=== PATIENT | female | born 1935 | race American Indian/Alaskan Native ===

== ENCOUNTER 2021-11-02 16:13 | Inpatient (IN) | payer MEDICARE ==
[~2021-11-02] VITALS: Ht 165.1 cm; Wt 76.1 kg
[~2021-11-02 16:13] MED LIST: ACET325 PO; CALCAVITD PO; CARV6.25 PO; Coumadin3 MG PO; DIPH50 PO; Diltiazem ER120 M1 PO; ERYT.5TO OU; FERR325 PO; FISH OIL 1,2001 EAC2 PO; GABA300 PO; Glipizide ER5 MG PO; HYDACE5 PO; HYDR1TAB94 PO; LEVSOD150 PO; LEVSOD50 PO; LOSARTAN-HCTZ1 EAC5 PO; LOSHYD100; LOSHYD100 PO; METF500C PO; Multiple Vitam1 EAC1 PO; OMEG1CAP30; OMEP20ER PO; OSEL75CA PO; PRAV20 PO; SERT50 PO; TOCO400; VITAMIN D31000 UNI1 PO; WARF3; WARF3 PO; WARF4
[2021-11-02 16:53] LABS: BASOPHILS ABSOLUTE AUTO 0.03 K/mm3 (0.00-0.23); BASOPHILS PERCENT AUTO 0 % (0-2); EOSINOPHILS ABSOLUTE AUTO 0.06 K/mm3 (0.00-0.68); EOSINOPHILS PERCENT AUTO 1 % (0-6); Hematocrit 44.4 % (33.0-51.0); Hemoglobin 14.5 g/dL (11.5-16.0); IMMATURE GRAN ABSOLUTE AUTO 0.01 K/mm3 (0.00-0.10); IMMATURE GRAN PERCENT AUTO 0 % (0-1); LYMPHOCYTES PERCENT AUTO 30 % (21-46); MONOCYTES ABSOLUTE AUTO 0.72 K/mm3 (0.16-1.47); MONOCYTES PERCENT AUTO 10 % (4-13); Mean Corpuscular HGB 31.4 pg (26.0-34.0); Mean Corpuscular HGB Conc 32.7 g/dL (31.5-36.5); Mean Corpuscular Volume 96 fL (80-100); NEUTROPHILS ABSOLUTE AUTO 4.31 K/mm3 (1.96-9.15); NEUTROPHILS PERCENT AUTO 59 % (41-73); RDW Coefficient Variation 14.8 % (11.7-14.2); RDW Standard Deviation 52.7 fL (35.1-46.3); Red Blood Cell Count 4.62 M/mm3 (3.80-5.20); White Blood Cell Count 7.33 K/mm3 (4.00-11.30)
[2021-11-02 16:59] LABS: Alanine Aminotransfer (ALT/SGP 23 U/L (12-78); Albumin, Blood 3.1 g/dL (3.4-5.0); Albumin/Globulin Ratio 0.8 (0.8-1.8); Alk Phos 78 U/L (50-136); Anion Gap 4 mmol/L (6-16); Aspartate Aminotrans (AST/SGOT 25 U/L (12-37); Bilirubin, Total 0.4 mg/dL (0.1-1.0); Blood Urea Nitrogen 17 mg/dL (8-24); Bun/Creatinine Ratio 20.9 (12.0-20.0); CO2, Blood 30 mmol/L (21-32); Calcium, Blood 9.2 mg/dL (8.5-10.1); Chloride, Blood 108 mmol/L (98-108); Creatinine, Blood 0.81 mg/dL (0.40-1.00); Ethanol (Alcohol), Blood, Med <3 mg/dL; Globulin, Blood 3.9 g/dL (2.2-4.0); Glomerular Filtration Rate >60 (60-); Glucose, Blood 107 mg/dL (70-99); Potassium, Blood 4.2 mmol/L (3.5-5.5); Sodium, Blood 142 mmol/L (136-145)
[2021-11-02 20:09] LABS: International Normalized Ratio 1.21; Prothrombin Time Results 12.5 Sec (9.7-11.5)
[2021-11-02] MEDS ORDERED: CARVEDILOL12.5 MG PO (22:49)
[2021-11-02] MEDS ORDERED: JANTOVEN3 M2 PO (22:49)
[2021-11-02] MEDS ORDERED: FOSAMAX70 MG PO (22:49)
[2021-11-02] MEDS ORDERED: JANTOVEN4 M2 PO (22:54)
--- NOTE | 2021-11-03 05:07 | NUR ---
HALIE WAS ADMITTED FOR CVA. CAROTID DUPLEX AND CT SCAN SHOWED INFARCTS. SHE WAS CONFUSED, HAD A SLURRED SPEECH IN THE ER ACCORDING TO REPORT. WHEN SHE ARRIVED TO THE MED SURG FLOOR SHE WAS ALERT AND ORIENTED, ASKED TO USE THE BATHROOM, USED THE WALKER TO AMBULATE WITH NORMAL GAIT (DOES NOT USE WALKER AT HOME). SHE WAS PLACED ON HEPARIN DRIP. VITALS ARE STABLE. LAB ORDERED THIS MORNING. WILL CONTINUE TO MONITOR
[2021-11-03 08:08] LABS: International Normalized Ratio 1.21; Prothrombin Time Results 12.5 Sec (9.7-11.5)
[2021-11-03 08:43] LABS: CHOL/HDL RATIO 3.5; Cholesterol 158 mg/dL (50-200); HDL Cholesterol 45 mg/dL (>39); LDL/HDL RATIO 2.1; Low Density Lipoprotein Chol 95 mg/dL (0-110); Triglycerides 90 mg/dL (30-160); Very Low Density Lipoprot Chol 18 mg/dL (6-32)
--- NOTE | 2021-11-03 18:36 | NUR ---
SHIFT SUMMARY PATIENT AAOX4. CAME IN WITH RIGHT SIDEED WEAKNESS BUT EQUAL OF NOW. SOME SLURRED SPEECH STILL NOTED AND A SLIGHT RIGHT FACIAL DROOP. WAS DROOLING A SMALL AMOUNT IN AM BUT NO LONGER. ABLE TO AMBULATE BACK AND FOURTH TO BATHROOM WITH A WALKER AT BEDSIDE. EATING MEALS WITH NO SWALLOWING PROBLEMS NOTED AND TOOK PILLS AND NO CHOKING SEEN OR HEARD. IV HEPARIN DRIP WAS DISCONTINUED TODAY AT 5PM AND COUMADIN WELL AND NEW ORDERS FOR ELIQUIS NOW. NO C/O PAIN, SOB, N/V, OR DISCOMFORT VOICED. VSS. NAD NOTED. WILL CONTINUE TO MONITOR IN CARE.
--- NOTE | 2021-11-04 04:07 | NUR ---
SHIFT SUMMARY: HALIE REMAINED STABLE ALL NIGHT. SHE WAS ALERT AND ORIENTED. GOT UP TO THE BATHROOM WUSING THE WALKER A COUPLE OF TIMES, WAS IN HUMOROUS MOOD WHEN AWAKE. SHE SLEPT MOST OF THE NIGHT
--- NOTE | 2021-11-04 09:24 | NUR ---
Received referral from [facility] [employer] Machinist (Dasia Calles) on 11/04/2021. Patient is to discharge with orders for hospice and family elected [facility]. Gathered supporting documentation for referral (face sheet, labs, imaging, progress notes, and H&P) and sent to [facility] Clinical Coordinator/heel sander rubber (Sarah Nelson) for review of hospice appropriateness and ability to accept patient onto service post discharge. Will await further information from hospice heel sander rubber regarding the above. Kami Neville Referral Liaison
[2021-11-04] MEDS ORDERED: ATOR80 PO (11:43)
[2021-11-04] MEDS ORDERED: ELIQUIS5 M2 PO (11:44)
--- NOTE | 2021-11-04 11:53 | NUR ---
Per Dr. Lua, patient is appropriate for discharge. Patient denied barriers to discharge and felt safe to return home. I called and left a voicemail for the patient's daughter (Barbara) who will be helping the patient with transportation home. I also scheduled a hospital follow up with Dex Shaver for next week on Tuesday, November 11, 2021 at 10:[address] Dr. Lua also wanted the patient to have two weeks worth of Eliguis (#56). Patient is to take two 2.5mg tablets BID until the patient follows up with her PCP. The nurse is aware and will instruct the patient.
--- NOTE | 2021-11-04 15:17 | NUR ---
DISCHARGE NOTE PATIENT IS AAOX4. UNDERSTANDS AND FOLLOWS COMMANDS AND ANSWERS QUESTIONS APPROPRIOETLY. WENT OVER DISCHARGE PAPERWORK WITH PATIENT AND HER DAUGHTER. EXPLAINED NEW MEDS, NEW PUREE DIET AND RISK AND PRECAUTIONS TO TAKE FOR ASPIRATION. GAVE SAMPLES OF ELIQUIS FROM MD OFFICE. REMOVED IV 20 GAUGE FROM RIGHT FOREARM AND APPLIED PRESSURE FOR 2 MINUTES D/T BEING ON COUMADIN AND HEPARIN DRIP PREVIOUSLY. ASSISTED WITH CLOTHES AND EXPLAINED HELP FOR HOME AND GAVE INFORMATION ON HOME HEALTH WITH PT/ST AND FOLLOW UP APPOINMENTS. QUESTIONS FROM DAUGHTER ANSWERED. VSS. NAD NOTED. NO C/O PAIN, SOB, N/V OR DISCOMFORT VOICED AT THIS TIME. PATIENT ESCORTED OFF FLOOR PER SERG JACQUES VIA WHEELCHAIR TO [employer] PERSONAL VEHICLE WITH PACKET IN HAND
--- NOTE | 2021-11-06 16:22 | NUR ---
Received referral from [facility] Surveillance Operator (Dasia Calles) on 11/04/2021. Patient discharged on 11/04/2021 with orders for home health and elected [facility]. Attempted to reach patient's daughter (Barbara Palencia) on at 1650. Unfortunately patient's daughter did not answer. Left voicemail asking patient's daughter to return this senior mortgage underwriter's call. Second attempted to reach patient's daughter on 11/06/2021 at 1031. Unfortunately patient's daughter did not answer. Left voicemail asking patient's daughter to return this senior mortgage underwriter's call. Third and final attempted to reach patient's daughter on 11/06/2021 at 1610. Spoke with patient's daughter at this time regarding the above. Patient's daughter is agreeable to the above. Discussed homebound status definition with patient's daughter. Patient's daughter verbalized understanding. Discussed what home health is vs what it is not (in home caregivers/housekeeping). Patient's daughter verbalized understanding. Discussed the next steps in the process of an initial assessment to determine frequency of visits. Again patient's daughter verbalized understanding. Offered a chance for patient's daughter to ask questions regarding the above of which there were none. Gathered all supporting documentation for referral (face sheet, face to face, med list, H&P, and most recent PT assessment) and sent to [facility] for review. No further interventions required. Kami Neville Referral Liaison
== END 2021-11-04 15:30 | disposition home health service (06) | DRG 65 ==
LOC: ER 16:13 → ERHOLD 18:42 → MEDS 22:53
PROVIDERS: Emergency Medicine; ADMIT Hospitalist
DX: I63.9 Cerebral infarction, unspecified (principal); I48.20 Chronic atrial fibrillation, unspecified; I42.9 Cardiomyopathy, unspecified; I69.354 Hemiplegia and hemiparesis following cerebral infarction affecting left non-dominant side; I10 Essential (primary) hypertension; E03.9 Hypothyroidism, unspecified; Z66 Do not resuscitate; E11.40 Type 2 diabetes mellitus with diabetic neuropathy, unspecified; F32.A Depression, unspecified; R47.1 Dysarthria and anarthria; Z79.01 Long term (current) use of anticoagulants; Z85.850 Personal history of malignant neoplasm of thyroid; E03.8 Other specified hypothyroidism; E78.5 Hyperlipidemia, unspecified; E66.9 Obesity, unspecified; G47.00 Insomnia, unspecified; G47.33 Obstructive sleep apnea (adult) (pediatric); Z95.0 Presence of cardiac pacemaker; Z87.891 Personal history of nicotine dependence; Z88.8 Allergy status to other drugs, medicaments and biological substances; Z79.899 Other long term (current) drug therapy; Z79.84 Long term (current) use of oral hypoglycemic drugs; Z88.1 Allergy status to other antibiotic agents; R47.81 Slurred speech
CPT/HCPCS: 36415; 70450; 71045; 80053; 80061; 84443; 85025; 85610; 85730; 92610; 93005; 93010; 93306; 93880; 97161; 97166; 97535; 99285-25; A9270; G0480; J1644

== ENCOUNTER 2025-01-26 11:47 | Observation (INO) | payer MEDICARE ==
[~2025-01-26] VITALS: Ht 157.5 cm; Wt 75.0 kg
[2025-01-26] VITALS (7 sets, daily range): BP systolic 111–156; BP diastolic 81–109
[~2025-01-26 11:47] MED LIST changes: +ATOR80 PO; +CARVEDILOL12.5 MG PO; +ELIQUIS5 M2 PO; +FOSAMAX70 MG PO; +JANTOVEN3 M2 PO; +JANTOVEN4 M2 PO
[2025-01-26 12:26] LABS: BASOPHILS ABSOLUTE AUTO 0.04 K/mm3 (0.00-0.23); BASOPHILS PERCENT AUTO 1 % (0-2); EOSINOPHILS ABSOLUTE AUTO 0.07 K/mm3 (0.00-0.68); EOSINOPHILS PERCENT AUTO 1 % (0-6); Hematocrit 33.3 % (33.0-51.0); IMMATURE GRAN ABSOLUTE AUTO 0.03 K/mm3 (0.00-0.10); IMMATURE GRAN PERCENT AUTO 0 % (0-1); LYMPHOCYTES ABSOLUTE AUTO 1.44 K/mm3 (0.84-5.20); LYMPHOCYTES PERCENT AUTO 16 % (21-46); MONOCYTES ABSOLUTE AUTO 1.01 K/mm3 (0.16-1.47); MONOCYTES PERCENT AUTO 11 % (4-13); Mean Corpuscular HGB 23.5 pg (26.0-34.0); Mean Corpuscular Volume 78 fL (80-100); Mean Platelet Volume 8.9 fL (9.1-12.4); NEUTROPHILS ABSOLUTE AUTO 6.25 K/mm3 (1.96-9.15); NEUTROPHILS PERCENT AUTO 71 % (41-73); Platelet Count 326 K/mm3 (150-400); RDW Coefficient Variation 20.6 % (11.7-14.2); Red Blood Cell Count 4.26 M/mm3 (3.80-5.20); White Blood Cell Count 8.84 K/mm3 (4.00-11.30)
[2025-01-26 12:58] LABS: Albumin, Blood 2.7 g/dL (3.4-5.0); Albumin/Globulin Ratio 0.6 (0.8-1.8); Bilirubin, Total 0.5 mg/dL (0.1-1.0); Bun/Creatinine Ratio 13.6 (12.0-20.0); Calcium, Blood 8.4 mg/dL (8.5-10.1); Creatinine, Blood 0.81 mg/dL (0.40-1.00); Globulin, Blood 4.3 g/dL (2.2-4.0); Potassium, Blood 3.8 mmol/L (3.5-5.5)
[2025-01-26 13:41] LABS: Influenza A, PCR NEGATIVE (NEGATIVE); Influenza B, PCR NEGATIVE (NEGATIVE); Resp Syncytial Virus, PCR NEGATIVE (NEGATIVE); SARS-Cov-2 (COVID-19) PCR, MMC NEGATIVE (NEGATIVE)
[2025-01-26 13:41] LABS: Percent Saturation 7.7 % (15.0-50.0)
[2025-01-26] MEDS ORDERED: Diltiazem HCl 5 MG / ML 5ML Vial IV ONE (14:25)
[2025-01-26] MEDS ORDERED: Sod Ferric Gluc Complx/Sucrose 125 MG in NS 100 ML IV ONE (16:20)
[2025-01-26] MEDS ORDERED: FLU VACC TS2024-25(6MOS UP)/PF 45 MCG/0.5 ML SYRINGE IM PRN (16:55)
[2025-01-26] MEDS ORDERED: Dose Adjust by Pharmacy XX STA (17:59)
[2025-01-26] MEDS ORDERED: Heparin Sodium 5000 Units/ML 1ML MDV IV ONE (18:00)
[2025-01-26] MEDS ORDERED: Heparin Sodium,Porcine/0.5 NS 500 ML IV SCH (18:00)
[2025-01-26 19:33] LABS: Anti-Xa UFH, PHA Monitoring <0.10 IU/mL; International Normalized Ratio 1.04; Prothrombin Time Results 11.1 Sec (9.7-11.5)
[2025-01-26] MEDS ORDERED: Melatonin 5 MG Tablet PO ONE (22:40)
[2025-01-27 01:59] VITALS: BP 152/93
[2025-01-27 02:18] LABS: BASOPHILS ABSOLUTE AUTO 0.03 K/mm3 (0.00-0.23); BASOPHILS PERCENT AUTO 0 % (0-2); EOSINOPHILS ABSOLUTE AUTO 0.08 K/mm3 (0.00-0.68); EOSINOPHILS PERCENT AUTO 1 % (0-6); Hematocrit 31.9 % (33.0-51.0); Hemoglobin 9.6 g/dL (11.5-16.0); IMMATURE GRAN ABSOLUTE AUTO 0.03 K/mm3 (0.00-0.10); IMMATURE GRAN PERCENT AUTO 0 % (0-1); LYMPHOCYTES ABSOLUTE AUTO 2.14 K/mm3 (0.84-5.20); LYMPHOCYTES PERCENT AUTO 21 % (21-46); MONOCYTES ABSOLUTE AUTO 1.16 K/mm3 (0.16-1.47); MONOCYTES PERCENT AUTO 12 % (4-13); Mean Corpuscular HGB 23.3 pg (26.0-34.0); Mean Corpuscular HGB Conc 30.1 g/dL (31.5-36.5); Mean Corpuscular Volume 77 fL (80-100); Mean Platelet Volume 8.9 fL (9.1-12.4); NEUTROPHILS ABSOLUTE AUTO 6.56 K/mm3 (1.96-9.15); NEUTROPHILS PERCENT AUTO 66 % (41-73); Platelet Count 320 K/mm3 (150-400); RDW Coefficient Variation 20.6 % (11.7-14.2); RDW Standard Deviation 57.4 fL (35.1-46.3); Red Blood Cell Count 4.12 M/mm3 (3.80-5.20)
[2025-01-27 02:34] LABS: Calcium, Blood 8.8 mg/dL (8.5-10.1); Creatinine, Blood 0.82 mg/dL (0.40-1.00); Potassium, Blood 4.1 mmol/L (3.5-5.5)
[2025-01-27] MEDS ORDERED: Dose Adjust by Pharmacy XX STA (02:51)
[2025-01-27] MEDS ORDERED: dilTIAZem HCL 125 MG in Dextrose 5% 100 ML IV SCH (04:30)
[2025-01-27 07:28] VITALS: BP 131/81
[2025-01-27] MEDS ORDERED: Insulin Regular 100 UNIT/ML 10ML Vial SC SCH (07:30)
[2025-01-27] MEDS ORDERED: PRESERVISION A1 EAC1 PO (08:39)
[2025-01-27] MEDS ORDERED: COLESTID1 G1 PO (08:43)
[2025-01-27] MEDS ORDERED: Diovan320 MG PO (08:44)
[2025-01-27] MEDS ORDERED: Sod Ferric Gluc Complx/Sucrose 125 MG in NS 100 ML IV SCH (09:00)
[2025-01-27] MEDS ORDERED: Carvedilol 6.25 MG Tab PO SCH (09:58)
[2025-01-27] MEDS ORDERED: Gabapentin 300 MG Cap PO SCH (10:00)
--- NOTE | 2025-01-27 10:00 | NUR ---
AM NOTE: PATIENT ALERT AND ORIENTED. PERRLA. DENIES PAIN. MOVING ALL EXTREMITIES. ABLE TO TURN SELF IN BED. TELE SHOWING AFLUTTER WITH HR 70-90'S. CARDIZEM GTT AT 5, TITRATED OFF THIS AM AND DR. GARNETT UPDATED. DENIES CHEST PAIN/PRESSURE/PALPITATIONS. TRACE EDEMA TO BLE. PLAN FOR ECHO THIS AFTERNOON. IV HEPARIN INFUSING THIS AM AND THEN DISCONTINUED PER DR. GARNETT ORDERS. DR. GARNETT TO BEDSIDE TO DISCUSS ANTICOAGULATION WITH PATIENT. ON ROOM AIR WHILE AWAKE SATING ABOVE 92%. NEEDING 1-2L WHEN SLEEPING. REFUSING CPAP, SEE SIGNED PAPERWORK IN CHART. LUNG SOUNDS CLEAR WITH FINE CRACKLES HEARD IN BASES. DENIES SOB/COUGH. EVEN AND UNLABORED RESPIRTATIONS. BOWEL TONES PRESENT. TOLERATING PO DIET. ACHS BLOOD SUGAR CHECKS. PUREWICK IN PLACE THIS AM AND THEN DISCONTINUED. URINE YELLOW/HAYLEY IN COLOR AND FOUL SMELLING. PATIENT DENIES URINARY SYMPTOMS. ATTENDS IN PLACE. SKIN BRUISED AND FRAGILE. CALL LIGHT IN REACH. DAUGHTER AT BEDSIDE AND UPDATED ON PLAN OF CARE.
[2025-01-27] MEDS ORDERED: Levothyroxine Sodium 0.175 MG TAB PO SCH (10:01)
[2025-01-27] MEDS ORDERED: Sertraline HCl 100 MG Tab PO SCH (10:02)
[2025-01-27 10:21] VITALS: BP 138/72
[2025-01-27 12:07] VITALS: BP 127/75
[2025-01-27] MEDS ORDERED: ASPI81CH PO (12:36)
[2025-01-27 12:54] LABS: Free Thyroxine 0.41 ng/dL (0.70-1.60); Triiodothyronine, Free 0.78 pg/mL (2.18-3.98)
--- NOTE | 2025-01-27 14:04 | NUR ---
DISCHARGE: NO ACUTE CHANGES. HR REMAINED 70-100'S. THIS RN TOOK PATIENT ON WALK AROUND ROOM, PREFORMED MARCHING IN PLACE AND SAT UP IN CHAIR. PATIENT HR UP TO 101 AND THEN BACK TO 70'S ONCE SITTING. OXYGEN SATURATIONS REMAINED 95% AND ABOVE ON ROOM AIR DURING ACTIVITY. DAUGHTER AT BEDSIDE FOR ACTIVITY. DR. GARNETT UPDATED ON VITALS DURING ACTIVITY. T3 AND T4 LABS RAN AND REPORTED BACK TO DR. GARNETT. PATIENT EDUCATED ON IMPORTANCE OF TAKING HOME THYROID MEDICATION. WRITTEN MATERIAL ALSO PROVIDED IN DISCHARGE PACKET. PATIENT EDUCATED ON NEW BABY ASPIRIN AND FOLLOW UP WITH PCP IN 3-5 DAYS. PATIENT AND DAUGHTER ABLE TO VERBALIZE DISCHARGE EDUCATION BACK TO THIS RN. IV'S REMOVED. TELE BOX RETURNED AND PATIENT LEFT UNIT VIA WHEELCHAIR WITH ALL PERSONAL BELONGINGS.
[2025-01-27] MEDS ORDERED: COLESTIPOL 1 GM PO SCH (21:00)
[2025-01-28] MEDS ORDERED: Aspirin 81 MG Chew PO SCH (09:00)
[2025-01-28] MEDS ORDERED: PRESERVISION PO SCH (09:00)
[2025-01-28] MEDS ORDERED: VALSARTAN 320MG PO SCH (09:00)
[2025-01-28] MEDS ORDERED: Multivitamins/Minerals TAB PO SCH (09:00)
[2025-01-28] MEDS ORDERED: Atorvastatin 40 MG Tab PO SCH (09:00)
== END 2025-01-27 13:30 | disposition home or self-care (01) ==
LOC: ER 11:47 → ERHOLD 11:48 → PCU 18:41
PROVIDERS: Student in an Organized Health Care Education/Training Program; ADMIT Family Medicine
DX: I48.20 Chronic atrial fibrillation, unspecified (principal); I11.9 Hypertensive heart disease without heart failure; E11.40 Type 2 diabetes mellitus with diabetic neuropathy, unspecified; E89.0 Postprocedural hypothyroidism; D50.9 Iron deficiency anemia, unspecified; G47.30 Sleep apnea, unspecified; F32.A Depression, unspecified; E78.5 Hyperlipidemia, unspecified; K21.9 Gastro-esophageal reflux disease without esophagitis; G47.00 Insomnia, unspecified; F17.210 Nicotine dependence, cigarettes, uncomplicated; Z66 Do not resuscitate; Z79.82 Long term (current) use of aspirin; Z79.01 Long term (current) use of anticoagulants; Z79.890 Hormone replacement therapy; Z79.899 Other long term (current) drug therapy; Z88.1 Allergy status to other antibiotic agents; Z95.0 Presence of cardiac pacemaker; Z85.850 Personal history of malignant neoplasm of thyroid; Z90.49 Acquired absence of other specified parts of digestive tract; Z86.73 Personal history of transient ischemic attack (TIA), and cerebral infarction without residual deficits
CPT/HCPCS: 0241U; 36415; 71045; 80048; 80053; 82728; 82947; 83540; 83550; 83735; 83880; 84439; 84443; 84481; 84484; 85025; 85520; 85610; 93005; 93010; 93306; 94660; 94762; 96365; 96366; 96367; 96375; 96376; 99285-25; A9270; G0378; J1644; J2916

== ENCOUNTER 2025-08-06 22:42 | Inpatient (IN) | payer MEDICARE ==
[~2025-08-06] VITALS: Ht 167.6 cm; Wt 72.0 kg
[~2025-08-06 22:42] MED LIST changes: +ASPI81CH PO; +CEFP200 PO; +COLESTID1 G1 PO; +Diovan320 MG PO; +PRESERVISION A1 EAC1 PO
[2025-08-07 00:51] LABS: BASOPHILS ABSOLUTE AUTO 0.02 K/mm3 (0.00-0.23); BASOPHILS PERCENT AUTO 0 % (0-2); EOSINOPHILS ABSOLUTE AUTO 0.12 K/mm3 (0.00-0.68); EOSINOPHILS PERCENT AUTO 1 % (0-6); Hematocrit 30.0 % (33.0-51.0); Hemoglobin 9.6 g/dL (11.5-16.0); IMMATURE GRAN ABSOLUTE AUTO 0.04 K/mm3 (0.00-0.10); IMMATURE GRAN PERCENT AUTO 0 % (0-1); LYMPHOCYTES ABSOLUTE AUTO 0.99 K/mm3 (0.84-5.20); LYMPHOCYTES PERCENT AUTO 9 % (21-46); MONOCYTES ABSOLUTE AUTO 1.55 K/mm3 (0.16-1.47); MONOCYTES PERCENT AUTO 14 % (4-13); Mean Corpuscular HGB Conc 32.0 g/dL (31.5-36.5); Mean Corpuscular Volume 92 fL (80-100); NEUTROPHILS ABSOLUTE AUTO 8.63 K/mm3 (1.96-9.15); NEUTROPHILS PERCENT AUTO 76 % (41-73); NRBC ABSOLUTE 0.00 K/mm3 (0.00-0.02); NRBC Auto 0.0 /100 WBC (0.0-0.2); Platelet Count 328 K/mm3 (150-400); RDW Coefficient Variation 16.0 % (11.7-14.2); RDW Standard Deviation 53.1 fL (35.1-46.3)
[2025-08-07 01:29] LABS: Alanine Aminotransfer (ALT/SGP 19.0 U/L (12-78); Albumin, Blood 2.2 g/dL (3.4-5.0); Albumin/Globulin Ratio 0.5 (0.8-1.8); Anion Gap 7.0 mmol/L (3-11); Aspartate Aminotrans (AST/SGOT 19.0 U/L (12-37); Bilirubin, Total 0.3 mg/dL (0.1-1.0); Blood Urea Nitrogen 33.0 mg/dL (8-24); CO2, Blood 26.0 mmol/L (21-32); Calcium, Blood 8.3 mg/dL (8.5-10.1); Chloride, Blood 107.0 mmol/L (98-108); Creatinine, Blood 0.94 mg/dL (0.40-1.00); Globulin, Blood 4.1 g/dL (2.2-4.0); Glucose, Blood 149.0 mg/dL (70-99); Magnesium, Blood 2.0 mg/dL (1.6-2.4); Potassium, Blood 4.1 mmol/L (3.5-5.5); Sodium, Blood 136.0 mmol/L (136-145); Thyroid Stimulating Hormone 25.1 uIU/mL (0.360-4.800); Total Protein, Blood 6.3 g/dL (6.4-8.2)
[2025-08-07 01:39] LABS: Influenza A, PCR NEGATIVE (NEGATIVE); Influenza B, PCR NEGATIVE (NEGATIVE); Resp Syncytial Virus, PCR NEGATIVE (NEGATIVE); SARS-Cov-2 (COVID-19) PCR, MMC NEGATIVE (NEGATIVE)
[2025-08-07 03:28] LABS: Source, Urine Clean Catch
[2025-08-07 03:43] LABS: Bilirubin, Urine Neg (Neg); Glucose Qualitative, Urine Neg (Neg); Ketones, Urine Neg (Neg); Leukocyte Esterase, Urine 3+ (Neg); Protein, Urine 3+ (Neg); Specific Gravity, Urine 1.015 (1.003-1.022); Urobilinogen, Urine NORM (Normal)
[2025-08-07 04:33] LABS: Color, Urine Yellow (P-Yellow)
[2025-08-07 04:35] LABS: Red Blood Cells, Urine 25-50 /hpf (0-2); White Blood Cells, Urine TNTC /hpf (0-5)
[2025-08-07] MEDS ORDERED: CefTRIAXone Sodium 1,000 MG in NS 100 ML IV ONE (04:45)
[2025-08-07] MEDS ORDERED: NS 1,000 ML IV SCH (05:40)
[2025-08-07] MEDS ORDERED: FLU VACC TS2025(65UP)/MF59C/PF 45 MCG/0.5 ML SYRINGE IM SCH (05:40)
[2025-08-07] MEDS ORDERED: Ondansetron HCl 2 MG / ML 2ML Vial IV PRN (05:40)
[2025-08-07] MEDS ORDERED: Levothyroxine Sodium 0.175 MG TAB PO SCH (08:00)
[2025-08-07 08:22] VITALS: BP 111/70
[2025-08-07] MEDS ORDERED: Enoxaparin 40 MG/0.4 ML SYR SC SCH (09:00)
[2025-08-07] MEDS ORDERED: SERT100 PO (09:34)
[2025-08-07 11:30] VITALS: BP 101/58
[2025-08-07 15:43] VITALS: BP 120/53
--- NOTE | 2025-08-07 17:33 | NUR ---
SHIFT SUMMARY- PT ALERT AND ORIENTED TO SELF. SHE ARRIVED ON MEDICAL FLOOR, WITH JAGED AND BROKEN OVER GROWN NAILS WITH MUD OR STOOL PACKED BENEATH. SHE HAS BLANCHABLE REDNESS ON HER COCCYX, YEAST IN HER FOLDS. PT HAS A Hx OF CVA WITH WEAKNESS, NO NOTED DEFICITE AT THIS TIME. PT HAS WEAKNESS T/O. PT WAS ASSISTED TO SOAK HER HANDS, THE STOOL WAS CLEANED OUT AND THE JAGGED EDGES FILED DOWN AND ROUNDED TO PROTECT HER SKIN. MD AWARE. NEW ORDER FOR MICONOZOLE POWDER RECIEVED. PT HAS REQUIRED REGULAR CHANGING FOR WET ATTENDS NO STOOL THIS SHIFT. PT IN BED, CALL LIGHT IN REACH, SHE DOES NOT CALL. BED ALARM FOR SAFETY. PT IS NPO FOR SWALLOW EVAL, PT STATES SHE IS NOT HUNGRY. WILL PASS ON IN BEDSIDE REPORT TO NIGHT RN.
[2025-08-07] MEDS ORDERED: Miconazole Nitrate 2% 85 GM PWD TOP SCH ×2 (17:55→21:00)
[2025-08-07 20:03] VITALS: BP 130/70
[2025-08-08] VITALS (7 sets, daily range): BP systolic 94–150; BP diastolic 50–82
[2025-08-08] MEDS ORDERED: NS 250 ML IV PRN (02:10)
[2025-08-08] MEDS ORDERED: CefTRIAXone Sodium 1,000 MG in NS 100 ML IV SCH (06:00)
[2025-08-08] MEDS ORDERED: NS 1,000 ML IV SCH ×2 (06:05→22:05)
--- NOTE | 2025-08-08 06:07 | NUR ---
IV FLUIDS NO FLUIDS ORDERED, PT REMAINS NPO. GOT T.O. FROM DR. ALLA KOHLER TO INFUSE 1 LITER NS X 1 NOW @ 75 MLS/HR.
[2025-08-08 06:11] LABS: BASOPHILS ABSOLUTE AUTO 0.04 K/mm3 (0.00-0.23); BASOPHILS PERCENT AUTO 1 % (0-2); EOSINOPHILS ABSOLUTE AUTO 0.14 K/mm3 (0.00-0.68); EOSINOPHILS PERCENT AUTO 2 % (0-6); Hematocrit 30.6 % (33.0-51.0); Hemoglobin 9.6 g/dL (11.5-16.0); IMMATURE GRAN ABSOLUTE AUTO 0.05 K/mm3 (0.00-0.10); IMMATURE GRAN PERCENT AUTO 1 % (0-1); LYMPHOCYTES ABSOLUTE AUTO 1.13 K/mm3 (0.84-5.20); LYMPHOCYTES PERCENT AUTO 14 % (21-46); MONOCYTES ABSOLUTE AUTO 1.42 K/mm3 (0.16-1.47); MONOCYTES PERCENT AUTO 18 % (4-13); Mean Corpuscular HGB Conc 31.4 g/dL (31.5-36.5); Mean Corpuscular Volume 92 fL (80-100); NEUTROPHILS ABSOLUTE AUTO 5.34 K/mm3 (1.96-9.15); NEUTROPHILS PERCENT AUTO 66 % (41-73); NRBC ABSOLUTE 0.00 K/mm3 (0.00-0.02); NRBC Auto 0.0 /100 WBC (0.0-0.2); Platelet Count 354 K/mm3 (150-400); RDW Coefficient Variation 16.0 % (11.7-14.2); RDW Standard Deviation 53.8 fL (35.1-46.3)
[2025-08-08 06:42] LABS: Alanine Aminotransfer (ALT/SGP 16.0 U/L (12-78); Albumin, Blood 2.2 g/dL (3.4-5.0); Albumin/Globulin Ratio 0.6 (0.8-1.8); Anion Gap 11.0 mmol/L (3-11); Aspartate Aminotrans (AST/SGOT 18.0 U/L (12-37); Bilirubin, Total 0.3 mg/dL (0.1-1.0); Blood Urea Nitrogen 28.0 mg/dL (8-24); CO2, Blood 21.0 mmol/L (21-32); Calcium, Blood 8.2 mg/dL (8.5-10.1); Chloride, Blood 111.0 mmol/L (98-108); Creatinine, Blood 0.88 mg/dL (0.40-1.00); Globulin, Blood 3.8 g/dL (2.2-4.0); Glucose, Blood 104.0 mg/dL (70-99); Potassium, Blood 3.9 mmol/L (3.5-5.5); Sodium, Blood 139.0 mmol/L (136-145); Total Protein, Blood 6.0 g/dL (6.4-8.2)
--- NOTE | 2025-08-08 06:57 | NUR ---
Shift Summary AOx self. Pleasant. Cooperative. Forgetful. Also [place] w/o hearing aids. Upper dentures in place. Patient answers "yep" and "no" questions mostly. Will say "That's a good question" to all follow-up clarifying questions. 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 Incontinent of both bowel and bladder. Bedrest, pending PT/OT eval. Pt remains NPO without Speech Consult, unsure why. Bedside swallow eval completed and passed. Took thyroid med w/o any s/sx of aspiration. Bed in lowest position. Call light in reach.
--- NOTE | 2025-08-08 16:07 | NUR ---
CASE CONFRENCE- DISCUSSED CASE WITH BIOLOGICAL PHOTOGRAPHER. PATIENT WAS ADMITED WITH UTI AND INCREASED BEHAVIORS. CURRENTLY CONFUSED. ATTEMPTED TO CONTACT DAUGHTER.
--- NOTE | 2025-08-08 16:50 | NUR ---
NOTE PT ON TELE, TELE REPORTED PT CONVERTED TO AFIB AT 0400, AND HAS BEEN IN AFIB EVER SINCE, YESTERDAY PER BEAD MAKER "WAS VERY NSR." PT REMAINS ON TELE, REPORTED TELE REPORT TO DR. HOUSE. PT REPORTS INTERMITTENT ABD PAIN. PT REPORTS NAUSEA THEN REPORTS NO NAUSEA. DR. HOUSE NOTIFIED. NO BM SINCE ADMIT.
--- NOTE | 2025-08-08 19:45 | NUR ---
SHIFT SUMMARY PT A&O TO SELF. PT REPONDS YES THEN NO TO QUESTIONS, IS CONFUSED AND FORGETFUL. PT ADMITTED DUE TO ACUTE ENCEPHALOPATHY. PT DENIED CHEST PAIN/SOB. PT REPORTS INTERMITTENT ABD PAIN. PT INC. OF URINE. UNKNOWN WHEN LAST BM IS. DAUGHTER AT BEDSIDE TODAY. APS CAME TO INTERVIEW PT AND DAUGHTER. PT ON TELE, (SEE PREVIOUS NOTE FOR REPORT) DINNER PT WORKED WITH OT. PT REPORTED WILL WORK WITH PT TOMORROW DESICION BASED ON OT REPORT. PLAN TO DO CT OF ABD. PT IN BED, BED IN LOWEST POSITION, CALL LIGHT IN REACH. COREG HELD AT DINNER DUE TO BP WAS 95/55.
--- NOTE | 2025-08-08 22:09 | NUR ---
NS @ 75 x1 Patient did not receive the full allotted dose of 1L NS that was ordered early this morning. It was ordered and given at end of shift by noc and had been stopped by pruner early on day shift soon after it was started because there was a misunderstanding about how many liters patient was to receive and how many she's already gotten. Called and received a T.O. now from Dr. Dawna Vaughan to give the 1L NS that was stopped this morning. Patient is noted to have light brown turbid malodorous urine via purewick. Offered fluids, patient stated she is not thirsty at the moment. She is here for UTI and encephalopathy.
[2025-08-09 00:11] LABS: Alanine Aminotransfer (ALT/SGP 17.0 U/L (12-78); Albumin, Blood 2.2 g/dL (3.4-5.0); Albumin/Globulin Ratio 0.6 (0.8-1.8); Anion Gap 12.0 mmol/L (3-11); Aspartate Aminotrans (AST/SGOT 24.0 U/L (12-37); Bilirubin, Total 0.3 mg/dL (0.1-1.0); Blood Urea Nitrogen 26.0 mg/dL (8-24); CO2, Blood 20.0 mmol/L (21-32); Calcium, Blood 8.3 mg/dL (8.5-10.1); Chloride, Blood 107.0 mmol/L (98-108); Creatinine, Blood 0.9 mg/dL (0.40-1.00); Globulin, Blood 3.9 g/dL (2.2-4.0); Glucose, Blood 103.0 mg/dL (70-99); Potassium, Blood 4.0 mmol/L (3.5-5.5); Sodium, Blood 135.0 mmol/L (136-145); Total Protein, Blood 6.1 g/dL (6.4-8.2)
[2025-08-09 00:49] VITALS: BP 148/76
[2025-08-09 04:26] VITALS: BP 136/53
--- NOTE | 2025-08-09 06:40 | NUR ---
Shift Summary CT-abdomen completed and results are in. Patient c/o increase tenderness to skin pretty much everywhere. Even a gentle touch, patient has been saying "ouch". 2nd liter of NS out of 2, since admitted, is infusing at this time. Patient has visible stool burden in rectum, noted w/ brief change. Tele: Aflutter 88, BBB. No acute tele events. VSS. Patient will likely require suppository to assist with having a BM.
[2025-08-09 06:43] LABS: BASOPHILS ABSOLUTE AUTO 0.05 K/mm3 (0.00-0.23); BASOPHILS PERCENT AUTO 1 % (0-2); EOSINOPHILS ABSOLUTE AUTO 0.14 K/mm3 (0.00-0.68); EOSINOPHILS PERCENT AUTO 2 % (0-6); Hematocrit 31.0 % (33.0-51.0); Hemoglobin 9.9 g/dL (11.5-16.0); IMMATURE GRAN ABSOLUTE AUTO 0.05 K/mm3 (0.00-0.10); IMMATURE GRAN PERCENT AUTO 1 % (0-1); LYMPHOCYTES ABSOLUTE AUTO 1.14 K/mm3 (0.84-5.20); LYMPHOCYTES PERCENT AUTO 15 % (21-46); MONOCYTES ABSOLUTE AUTO 1.17 K/mm3 (0.16-1.47); MONOCYTES PERCENT AUTO 15 % (4-13); Mean Corpuscular HGB Conc 31.9 g/dL (31.5-36.5); Mean Corpuscular Volume 92 fL (80-100); NEUTROPHILS ABSOLUTE AUTO 5.06 K/mm3 (1.96-9.15); NEUTROPHILS PERCENT AUTO 66 % (41-73); NRBC ABSOLUTE 0.00 K/mm3 (0.00-0.02); NRBC Auto 0.0 /100 WBC (0.0-0.2); Platelet Count 373 K/mm3 (150-400); RDW Coefficient Variation 15.8 % (11.7-14.2); RDW Standard Deviation 52.1 fL (35.1-46.3)
[2025-08-09 07:02] LABS: Alanine Aminotransfer (ALT/SGP 17.0 U/L (12-78); Albumin, Blood 2.3 g/dL (3.4-5.0); Albumin/Globulin Ratio 0.6 (0.8-1.8); Anion Gap 12.0 mmol/L (3-11); Aspartate Aminotrans (AST/SGOT 23.0 U/L (12-37); Bilirubin, Total 0.2 mg/dL (0.1-1.0); Blood Urea Nitrogen 24.0 mg/dL (8-24); CO2, Blood 20.0 mmol/L (21-32); Calcium, Blood 7.9 mg/dL (8.5-10.1); Chloride, Blood 108.0 mmol/L (98-108); Creatinine, Blood 1.0 mg/dL (0.40-1.00); Globulin, Blood 3.9 g/dL (2.2-4.0); Glucose, Blood 92.0 mg/dL (70-99); Potassium, Blood 3.8 mmol/L (3.5-5.5); Sodium, Blood 136.0 mmol/L (136-145); Total Protein, Blood 6.2 g/dL (6.4-8.2)
[2025-08-09 07:25] VITALS: BP 121/67
--- NOTE | 2025-08-09 09:24 | NUR ---
NOTE PT ON TELE, TELE REPORTS PT CONVERTED FROM A FLUTTER TO NSR AT 0500 TODAY. PT BLOOD PRESSURE 121/67. THIS RN NOTED PT GIVEN 12.5 OF COREG YESTERDAY AM WITH BP OF 135/57. YEST AT 1715 PT BP WAS 94/55, COREG HELD AT DINNER TIME 08/08/25. REPORTED TO DR. DHALIWAL, DR. DHALIWAL REPORTED VERBAL ORDER TO DO 6.25 BIDM WITH PARAMETERS.
--- NOTE | 2025-08-09 10:48 | NUR ---
NOTE DR. DHALIWAL ORDERED FLEET ENEMA DUE TO SCAN SHOWED FECAL IMPACTION.
[2025-08-09] MEDS ORDERED: NS 1,000 ML IV SCH (11:55)
--- NOTE | 2025-08-09 12:28 | NUR ---
NOTE PT HAS PERWICK IN PLACE. THIS RN NOTICED PT HAS DARK TEA COLOR/BLACK URINE. NOTIFIED DR. DHALIWAL. DR DHALIWAL REPORTED "GIVE ENEMA, CONT FLUIDS, BLADDER SCAN PT. THIS RN WENT TO BREAK AND NOTIFIED BREAK RN. BREAK RN REPORTED BLADDER SCANNED PT, PT HAS 473ML URINE IN BLADDER. PT HAD BM BEFORE ENEMA AND GAVE ENEMA. PT HAS NEW BAG OF FLUIDS." FURNACE HAND REPORTED, "PT ON L SIDE, RESTING COMFORTABLY." PT IN BED, BED IN LOWEST POSITION, CALL LIGHT IN REACH.
[2025-08-09 15:37] VITALS: BP 125/58
[2025-08-09 17:58] VITALS: BP 130/62
--- NOTE | 2025-08-09 18:19 | NUR ---
SHIFT SUMMARY PT A&O TO SELF. PT RESPONDS YES THEN NO TO QUESTIONS BUT IS NOT CONSISTENT. PT IS CONFUSED AND FORGETFUL. PT ADMITTED DUE TO ACUTE ENCEPHELAPATHY. PT DENIED CHEST PAIN/SOB. PT PAINFUL AT TIMES. DR. DHALIWAL ORDERED TIPTON FOR ACUTE RETENTION. TIPTON PLACED BY CASINO SURVEILLANCE OFFICER. TIPTON DRAINING ADEQUATE WITH NO DEPENDENT LOOPS. URINE IS DARK RED/TEA LIKE. PT HAD BM TODAY. PT HAD ENEMA TODAY. PT ON TELE. PT WORKED WITH PT. PT REF OCCUPATIONAL THERAPY. PT IN BED, BED IN LOWEST POSITION, CALL LIGHT IN REACH. VSS.
[2025-08-09 19:35] VITALS: BP 104/61
--- NOTE | 2025-08-10 00:38 | NUR ---
Midshift Summary Care handed off to Vianey Saenz RN. AOx1. Anxious at times, mostly calm and cooperative. Nystatin powder applied to folds. Nolasco was placed during day shift, burgundy colored urine which is darker than yesterday's urine, draining to gravity, stat lock in place. Meds whole w/ water. Pt c/o tenderness w/ indwelling catheter present. NS @ 75 continuous infusing into new PIV RFA. Call light in reach. Bed in lowest position. Care relinquished.
--- NOTE | 2025-08-10 01:33 | NUR ---
ASSUMPTION OF CARE: THIS RN ASSUMED CARE OF PATIENT, OVERSEEING CARE OF ORIENTING RNANDREAS. AWAKE AND ANXIOUS DURING HANDOFF REPORT; EASILY REORIENTED. BREATHING EVEN AND UNLABORED c ROOM AIR. NS @ 75mL/hr VIA RFA. TIPTON PULLED EARLIER IN SHIFT. MOST RECENT TELE STRIP IN CHART INTERPRETED SINUS c FAVB AND BBB @ 82bpm. BED IN LOWEST POSITION. CALL LIGHT WITHIN REACH. ACUTE NEEDS MET.
[2025-08-10 01:40] VITALS: BP 131/65
[2025-08-10 04:22] VITALS: BP 126/63
[2025-08-10 06:31] LABS: BASOPHILS ABSOLUTE AUTO 0.02 K/mm3 (0.00-0.23); BASOPHILS PERCENT AUTO 0 % (0-2); EOSINOPHILS ABSOLUTE AUTO 0.17 K/mm3 (0.00-0.68); EOSINOPHILS PERCENT AUTO 3 % (0-6); Hematocrit 28.6 % (33.0-51.0); Hemoglobin 9.0 g/dL (11.5-16.0); IMMATURE GRAN ABSOLUTE AUTO 0.03 K/mm3 (0.00-0.10); IMMATURE GRAN PERCENT AUTO 1 % (0-1); LYMPHOCYTES ABSOLUTE AUTO 0.95 K/mm3 (0.84-5.20); LYMPHOCYTES PERCENT AUTO 15 % (21-46); MONOCYTES ABSOLUTE AUTO 0.84 K/mm3 (0.16-1.47); MONOCYTES PERCENT AUTO 13 % (4-13); Mean Corpuscular HGB Conc 31.5 g/dL (31.5-36.5); Mean Corpuscular Volume 91 fL (80-100); NEUTROPHILS ABSOLUTE AUTO 4.30 K/mm3 (1.96-9.15); NEUTROPHILS PERCENT AUTO 68 % (41-73); NRBC ABSOLUTE 0.00 K/mm3 (0.00-0.02); NRBC Auto 0.0 /100 WBC (0.0-0.2); Platelet Count 340 K/mm3 (150-400); RDW Coefficient Variation 15.8 % (11.7-14.2); RDW Standard Deviation 51.8 fL (35.1-46.3)
[2025-08-10 07:17] LABS: Alanine Aminotransfer (ALT/SGP 20.0 U/L (12-78); Albumin, Blood 2.3 g/dL (3.4-5.0); Albumin/Globulin Ratio 0.6 (0.8-1.8); Anion Gap 14.0 mmol/L (3-11); Aspartate Aminotrans (AST/SGOT 27.0 U/L (12-37); Bilirubin, Total 0.2 mg/dL (0.1-1.0); Blood Urea Nitrogen 21.0 mg/dL (8-24); CO2, Blood 18.0 mmol/L (21-32); Calcium, Blood 8.2 mg/dL (8.5-10.1); Chloride, Blood 108.0 mmol/L (98-108); Creatinine, Blood 0.94 mg/dL (0.40-1.00); Globulin, Blood 3.7 g/dL (2.2-4.0); Glucose, Blood 73.0 mg/dL (70-99); Potassium, Blood 3.6 mmol/L (3.5-5.5); Sodium, Blood 136.0 mmol/L (136-145); Total Protein, Blood 6.0 g/dL (6.4-8.2)
[2025-08-10 07:22] VITALS: BP 140/76
[2025-08-10] MEDS ORDERED: Piperacillin/Tazobactam Sod 4.5 GM in NS 100 ML IV SCH (10:00)
[2025-08-10 11:07] VITALS: BP 121/53
--- NOTE | 2025-08-10 16:15 | NUR ---
RETURN CALL PLACED TO PATIENTS FAMILY. ANSWERED BASIC QUESTIONS AND ENCOURAGED FAMILY TO CALL BACK WITH CONCERNS.
[2025-08-10 17:20] VITALS: BP 127/63
--- NOTE | 2025-08-10 18:26 | NUR ---
PATIENT IN BED TODAY WITH VERBAL COMPLAINTS OF PAIN STATING OUCH BUT UNABLE TO TELL NURSE WHERE PAIN IS AND WHEN ASKED PATIENT DENIES ANY PAIN. RECTAL EXAM DONE PER ORDER BUT THIS RN IS UNABLE TO REACH ANY STOOL. PATIENT HAD A BOWEL MOVEMENT YESTERDAY.
[2025-08-10 20:20] VITALS: BP 115/84
[2025-08-11 01:07] VITALS: BP 131/65
--- NOTE | 2025-08-11 04:03 | NUR ---
SHIFT SUMMARY PATIENT HAD NO ACUTE CHANGES. AXOX 2 WITH GARBLED SPEECH, BEDREST. DENIES CHEST PAIN, SOB, AND N/V. VSS/AFEBRILE. PIV INTACT. IV ABX INFUSED. NS INFUSING @ 75 mL/HR. [place]. TELE MONITOR NSR 75 W/BBB, 1ST DEGREE. TIPTON PATENT AND DRAINING TO GRAVITY. CALL LIGHT IN REACH. BED IN LOWEST POSITION AND ALARM ON. WILL CONTINUE TO MONITOR UNTIL DAY SHIFT NURSE ASSUMES CARE.
[2025-08-11 05:29] VITALS: BP 137/68
--- NOTE | 2025-08-11 06:32 | NUR ---
PATIENT REFUSED MORNING LABS X 2. FITNESS FLOOR ATTENDANT REPORTS WILL TRY LATER WHEN THEY HAVE MORE STAFF.
[2025-08-11 07:30] VITALS: BP 129/54
[2025-08-11 09:22] LABS: BASOPHILS ABSOLUTE AUTO 0.02 K/mm3 (0.00-0.23); BASOPHILS PERCENT AUTO 0 % (0-2); EOSINOPHILS ABSOLUTE AUTO 0.12 K/mm3 (0.00-0.68); EOSINOPHILS PERCENT AUTO 3 % (0-6); Hematocrit 29.3 % (33.0-51.0); Hemoglobin 9.2 g/dL (11.5-16.0); IMMATURE GRAN ABSOLUTE AUTO 0.03 K/mm3 (0.00-0.10); IMMATURE GRAN PERCENT AUTO 1 % (0-1); LYMPHOCYTES ABSOLUTE AUTO 0.54 K/mm3 (0.84-5.20); LYMPHOCYTES PERCENT AUTO 12 % (21-46); MONOCYTES ABSOLUTE AUTO 0.56 K/mm3 (0.16-1.47); MONOCYTES PERCENT AUTO 12 % (4-13); Mean Corpuscular HGB Conc 31.4 g/dL (31.5-36.5); Mean Corpuscular Volume 92 fL (80-100); NEUTROPHILS ABSOLUTE AUTO 3.34 K/mm3 (1.96-9.15); NEUTROPHILS PERCENT AUTO 73 % (41-73); NRBC ABSOLUTE 0.00 K/mm3 (0.00-0.02); NRBC Auto 0.0 /100 WBC (0.0-0.2); Platelet Count 334 K/mm3 (150-400); RDW Coefficient Variation 15.9 % (11.7-14.2); RDW Standard Deviation 53.7 fL (35.1-46.3)
[2025-08-11 09:42] LABS: Alanine Aminotransfer (ALT/SGP 24.0 U/L (12-78); Albumin, Blood 2.3 g/dL (3.4-5.0); Albumin/Globulin Ratio 0.6 (0.8-1.8); Anion Gap 9.0 mmol/L (3-11); Aspartate Aminotrans (AST/SGOT 36.0 U/L (12-37); Bilirubin, Total 0.2 mg/dL (0.1-1.0); Blood Urea Nitrogen 16.0 mg/dL (8-24); CO2, Blood 22.0 mmol/L (21-32); Calcium, Blood 7.8 mg/dL (8.5-10.1); Chloride, Blood 108.0 mmol/L (98-108); Creatinine, Blood 0.98 mg/dL (0.40-1.00); Globulin, Blood 3.8 g/dL (2.2-4.0); Glucose, Blood 93.0 mg/dL (70-99); Potassium, Blood 3.4 mmol/L (3.5-5.5); Sodium, Blood 136.0 mmol/L (136-145); Total Protein, Blood 6.1 g/dL (6.4-8.2)
[2025-08-11 10:51] VITALS: BP 122/63
[2025-08-11 16:06] VITALS: BP 122/59
[2025-08-11 19:55] VITALS: BP 122/64
[2025-08-11] MEDS ORDERED: Lactobacil 2-S.Thermo-Bifido 1 1 Cap PO SCH (21:00)
[2025-08-12 00:28] VITALS: BP 146/74
--- NOTE | 2025-08-12 04:05 | NUR ---
SHIFT SUMMARY PATIENT HAD NO ACUTE CHANGES. ALERT TO SELF, [place], AND BEDREST. PIV INTACT. NS INFUSING @ 75 mL/HR AND IV ABX INFUSED. DENIES CHEST PAIN, SOB, AND N/V. VSS/AFEBRILE. TELE MONITOR SR 73, BBB. TIPTON PATENT AND DRAINING TO GRAVITY. AWAKE MOST OF THE SHIFT. CALL LIGHT IN REACH. BED IN LOWEST POSITION AND ALARM ON. WILL CONTINUE TO MONITOR UNTIL DAY SHIFT NURSE ASSUMES CARE.
[2025-08-12 04:17] VITALS: BP 142/76
--- NOTE | 2025-08-12 05:39 | NUR ---
PATIENT REFUSING MORNING LABS.
[2025-08-12 07:29] VITALS: BP 135/102
[2025-08-12 09:31] LABS: BASOPHILS ABSOLUTE AUTO 0.03 K/mm3 (0.00-0.23); BASOPHILS PERCENT AUTO 1 % (0-2); EOSINOPHILS ABSOLUTE AUTO 0.17 K/mm3 (0.00-0.68); EOSINOPHILS PERCENT AUTO 3 % (0-6); Hematocrit 27.4 % (33.0-51.0); Hemoglobin 8.8 g/dL (11.5-16.0); IMMATURE GRAN ABSOLUTE AUTO 0.05 K/mm3 (0.00-0.10); IMMATURE GRAN PERCENT AUTO 1 % (0-1); LYMPHOCYTES ABSOLUTE AUTO 0.73 K/mm3 (0.84-5.20); LYMPHOCYTES PERCENT AUTO 14 % (21-46); MONOCYTES ABSOLUTE AUTO 0.80 K/mm3 (0.16-1.47); MONOCYTES PERCENT AUTO 15 % (4-13); Mean Corpuscular HGB Conc 32.1 g/dL (31.5-36.5); Mean Corpuscular Volume 90 fL (80-100); NEUTROPHILS ABSOLUTE AUTO 3.61 K/mm3 (1.96-9.15); NEUTROPHILS PERCENT AUTO 67 % (41-73); NRBC ABSOLUTE 0.00 K/mm3 (0.00-0.02); NRBC Auto 0.0 /100 WBC (0.0-0.2); Platelet Count 275 K/mm3 (150-400); RDW Coefficient Variation 16.0 % (11.7-14.2); RDW Standard Deviation 52.6 fL (35.1-46.3)
[2025-08-12 09:55] LABS: Alanine Aminotransfer (ALT/SGP 24.0 U/L (12-78); Albumin, Blood 2.0 g/dL (3.4-5.0); Albumin/Globulin Ratio 0.6 (0.8-1.8); Anion Gap 7.0 mmol/L (3-11); Aspartate Aminotrans (AST/SGOT 43.0 U/L (12-37); Bilirubin, Total 0.2 mg/dL (0.1-1.0); Blood Urea Nitrogen 12.0 mg/dL (8-24); CO2, Blood 22.0 mmol/L (21-32); Calcium, Blood 7.8 mg/dL (8.5-10.1); Chloride, Blood 111.0 mmol/L (98-108); Creatinine, Blood 0.9 mg/dL (0.40-1.00); Globulin, Blood 3.3 g/dL (2.2-4.0); Glucose, Blood 108.0 mg/dL (70-99); Potassium, Blood 3.4 mmol/L (3.5-5.5); Sodium, Blood 137.0 mmol/L (136-145); Total Protein, Blood 5.3 g/dL (6.4-8.2)
[2025-08-12 11:04] VITALS: BP 104/56
[2025-08-12 16:22] VITALS: BP 126/73
--- NOTE | 2025-08-12 19:54 | NUR ---
shift summary. no change in condition today pt contiuned to be very confused crying out and agitated whenever moved or turned. continous monitoring is needed especially during meals. salvador intact and is now clr yellow. call light within reach but pt unable to make needs known. pt continously checked on.
[2025-08-13 01:27] VITALS: BP 115/66
[2025-08-13 05:26] VITALS: BP 132/59
[2025-08-13 06:16] LABS: BASOPHILS ABSOLUTE AUTO 0.03 K/mm3 (0.00-0.23); BASOPHILS PERCENT AUTO 1 % (0-2); EOSINOPHILS ABSOLUTE AUTO 0.16 K/mm3 (0.00-0.68); EOSINOPHILS PERCENT AUTO 3 % (0-6); Hematocrit 27.0 % (33.0-51.0); Hemoglobin 8.4 g/dL (11.5-16.0); IMMATURE GRAN ABSOLUTE AUTO 0.09 K/mm3 (0.00-0.10); IMMATURE GRAN PERCENT AUTO 1 % (0-1); LYMPHOCYTES ABSOLUTE AUTO 1.25 K/mm3 (0.84-5.20); LYMPHOCYTES PERCENT AUTO 19 % (21-46); MONOCYTES ABSOLUTE AUTO 1.10 K/mm3 (0.16-1.47); MONOCYTES PERCENT AUTO 17 % (4-13); Mean Corpuscular HGB Conc 31.1 g/dL (31.5-36.5); Mean Corpuscular Volume 92 fL (80-100); NEUTROPHILS ABSOLUTE AUTO 3.86 K/mm3 (1.96-9.15); NEUTROPHILS PERCENT AUTO 59 % (41-73); NRBC ABSOLUTE 0.00 K/mm3 (0.00-0.02); NRBC Auto 0.0 /100 WBC (0.0-0.2); Platelet Count 263 K/mm3 (150-400); RDW Coefficient Variation 16.3 % (11.7-14.2); RDW Standard Deviation 54.4 fL (35.1-46.3)
[2025-08-13 06:34] LABS: Anion Gap 8.0 mmol/L (3-11); Blood Urea Nitrogen 11.0 mg/dL (8-24); CO2, Blood 20.0 mmol/L (21-32); Calcium, Blood 7.8 mg/dL (8.5-10.1); Chloride, Blood 114.0 mmol/L (98-108); Creatinine, Blood 0.88 mg/dL (0.40-1.00); Glucose, Blood 95.0 mg/dL (70-99); Potassium, Blood 4.1 mmol/L (3.5-5.5); Sodium, Blood 138.0 mmol/L (136-145)
[2025-08-13 07:41] VITALS: BP 136/64
[2025-08-13 11:31] LABS: Ferritin, Serum 85.0 ng/mL (8-252); Total Iron Binding Capacity 322.0 ug/dL (250-450)
[2025-08-13] MEDS ORDERED: Piperacillin/Tazobactam Sod 4.5 GM in NS 100 ML IV SCH (16:00)
[2025-08-13 16:24] VITALS: BP 127/59
--- NOTE | 2025-08-13 19:15 | NUR ---
NO ACUTE CHANGES THIS SHIFT. PT IS ALERT AND ORIENTED X1. BEDREST. IV ANTIBIOTICS CONTINUED THIS SHIFT. PALLIATIVE CARE IS ON THE CASE. Q 2HR TURNS
[2025-08-13 20:18] VITALS: BP 116/61
[2025-08-14 00:18] VITALS: BP 109/77
[2025-08-14 04:24] VITALS: BP 112/74
[2025-08-14 05:44] LABS: BASOPHILS ABSOLUTE AUTO 0.03 K/mm3 (0.00-0.23); BASOPHILS PERCENT AUTO 0 % (0-2); EOSINOPHILS ABSOLUTE AUTO 0.22 K/mm3 (0.00-0.68); EOSINOPHILS PERCENT AUTO 3 % (0-6); Hematocrit 27.6 % (33.0-51.0); Hemoglobin 8.9 g/dL (11.5-16.0); IMMATURE GRAN ABSOLUTE AUTO 0.06 K/mm3 (0.00-0.10); IMMATURE GRAN PERCENT AUTO 1 % (0-1); LYMPHOCYTES ABSOLUTE AUTO 1.36 K/mm3 (0.84-5.20); LYMPHOCYTES PERCENT AUTO 19 % (21-46); MONOCYTES ABSOLUTE AUTO 1.19 K/mm3 (0.16-1.47); MONOCYTES PERCENT AUTO 17 % (4-13); Mean Corpuscular HGB Conc 32.2 g/dL (31.5-36.5); Mean Corpuscular Volume 89 fL (80-100); NEUTROPHILS ABSOLUTE AUTO 4.24 K/mm3 (1.96-9.15); NEUTROPHILS PERCENT AUTO 60 % (41-73); NRBC ABSOLUTE 0.00 K/mm3 (0.00-0.02); NRBC Auto 0.0 /100 WBC (0.0-0.2); Platelet Count 265 K/mm3 (150-400); RDW Coefficient Variation 16.2 % (11.7-14.2); RDW Standard Deviation 52.9 fL (35.1-46.3)
[2025-08-14 06:04] LABS: Anion Gap 9.0 mmol/L (3-11); Blood Urea Nitrogen 7.0 mg/dL (8-24); CO2, Blood 23.0 mmol/L (21-32); Calcium, Blood 7.9 mg/dL (8.5-10.1); Chloride, Blood 108.0 mmol/L (98-108); Creatinine, Blood 0.9 mg/dL (0.40-1.00); Glucose, Blood 96.0 mg/dL (70-99); Potassium, Blood 3.6 mmol/L (3.5-5.5); Sodium, Blood 136.0 mmol/L (136-145)
[2025-08-14 07:39] VITALS: BP 136/62
--- NOTE | 2025-08-14 07:56 | NUR ---
SHIFT SUMMARY ALERT, UNABLE TO ASSESS ORIENTATION. BOWEL PREP STARTING AT 2200, FREQUENT SIPS PROVIDED. PT DOES NOT TAKE IN MUCH AT A TIME; ESTIMATE ONLY 300 ML OF THE FIRST BOTTLE ADMINISTERED THIS SHIFT. 2 LOOSE STOOLS, MEDIUM BROWN. SAFETY PRECAUTIONS IN PLACE. VSS ON RA.
[2025-08-14 09:41] LABS: Stool Occult Blood Guaiac 1 Neg (Neg)
[2025-08-14 13:42] VITALS: BP 99/59
[2025-08-14 17:21] VITALS: BP 133/55
--- NOTE | 2025-08-14 18:18 | NUR ---
NO ACUTE CHANGES THIS SHIFT. BOWEL PREP/WATER CONTINUED THIS SHIFT. DR. ANAND AT BEDSIDE THIS AFTERNOON. PT HAS NOT STARTED 2ND BOTTLE OF BOWEL PREP. STAFF ENOURAGING WATER/PREP OFTEN POSSIBLE. PT ONLY TAKING SMALL SIPS AND DECLINING MUCH OF TIME. PER DR. ANAND, PLAN FOR COLONOSCOPY TOMORROW. START 2ND BOWEL PREP TOMORROW. CLEAR LIQUID OK TONIGHT. MD TO PLACE ORDERS. PT IS ALERT AND ORIENTED X2-3. USES SHORT "YES" "NO" ANSWERS FOR COMMUNICATION. MENTATION IS MORE CLEAR THIS SHIFT THAN YESTERDAY. IV ANTIBIOTICS CONTINUED.
[2025-08-14 19:57] VITALS: BP 139/71
[2025-08-15 00:29] VITALS: BP 148/74
[2025-08-15 04:36] VITALS: BP 143/67
[2025-08-15 05:28] LABS: BASOPHILS ABSOLUTE AUTO 0.05 K/mm3 (0.00-0.23); BASOPHILS PERCENT AUTO 1 % (0-2); EOSINOPHILS ABSOLUTE AUTO 0.17 K/mm3 (0.00-0.68); EOSINOPHILS PERCENT AUTO 2 % (0-6); Hematocrit 27.2 % (33.0-51.0); Hemoglobin 8.8 g/dL (11.5-16.0); IMMATURE GRAN ABSOLUTE AUTO 0.05 K/mm3 (0.00-0.10); IMMATURE GRAN PERCENT AUTO 1 % (0-1); LYMPHOCYTES ABSOLUTE AUTO 1.25 K/mm3 (0.84-5.20); LYMPHOCYTES PERCENT AUTO 17 % (21-46); MONOCYTES ABSOLUTE AUTO 1.31 K/mm3 (0.16-1.47); MONOCYTES PERCENT AUTO 18 % (4-13); Mean Corpuscular HGB Conc 32.4 g/dL (31.5-36.5); Mean Corpuscular Volume 90 fL (80-100); NEUTROPHILS ABSOLUTE AUTO 4.60 K/mm3 (1.96-9.15); NEUTROPHILS PERCENT AUTO 62 % (41-73); NRBC ABSOLUTE 0.00 K/mm3 (0.00-0.02); NRBC Auto 0.0 /100 WBC (0.0-0.2); Platelet Count 249 K/mm3 (150-400); RDW Coefficient Variation 16.6 % (11.7-14.2); RDW Standard Deviation 53.7 fL (35.1-46.3)
[2025-08-15 07:07] LABS: Anion Gap 9.0 mmol/L (3-11); Blood Urea Nitrogen 6.0 mg/dL (8-24); CO2, Blood 21.0 mmol/L (21-32); Calcium, Blood 8.3 mg/dL (8.5-10.1); Chloride, Blood 109.0 mmol/L (98-108); Creatinine, Blood 0.82 mg/dL (0.40-1.00); Glucose, Blood 135.0 mg/dL (70-99); Potassium, Blood 3.4 mmol/L (3.5-5.5); Sodium, Blood 136.0 mmol/L (136-145)
--- NOTE | 2025-08-15 07:16 | NUR ---
SHIFT SUMMARY ALERT, MORE INTERACTIVE THIS SHIFT. VSS ON RA. COMPLETED ORAL INTAKE ASSOCIATED WITH 1ST BOTTLE OF BOWEL PREP. SECOND BOTTLE STARTED AT 0700. PT CONTINUES TO TAKE ONLY SMALL SIPS AT A TIME. TWO BM OVERNIGHT. SAFETY PRECAUTIONS IN PLACE. PT DENIES PAIN, NO S/S OF PAIN NOTED BY FLACC SCALE.
[2025-08-15 07:27] VITALS: BP 138/70
[2025-08-15] MEDS ORDERED: Ondansetron HCl 2 MG / ML 2ML Vial IV PRN (09:45)
[2025-08-15 11:13] VITALS: BP 117/75
[2025-08-15 13:39] VITALS: BP 131/84
--- NOTE | 2025-08-15 13:44 | NUR ---
08/15/25 1344 [place] History, Chart, Medications and Allergies reviewed before start of procedure.MONITOR INTACT WITH CONTINUOUS PULSE OXIMETRY, CONTINUOUS END TITAL CO2, 3-LEAD EKG AND INTERMITTENT BLOOD PRESSURE.3-LEAD EKG REVIEWED WITH PHYSICIAN PRIOR TO START OF PROCEDURE.O2 VIA POM INTACT THROUGHOUT SEDATION/PROCEDURE.See Anesthesia record.
--- NOTE | 2025-08-15 13:44 | NUR ---
FAMILY AT [facility]. PATIENT IS MOSTLY NON VERBAL UNABLE TO ANSWER QUESTIONS ABOUT HER HEALTH HISTORY. FAMILY EDUCATED ABOUT FALL RISK AND CALL LIGHT, CALL LIGHT WITHIN REACH. LUNGS ARE CLEAR BUT DIM, SHALLOW BREATHS. VITAL SIGNS DOCUMENTED.
[2025-08-15 15:15] VITALS: BP 135/71
--- NOTE | 2025-08-15 17:32 | NUR ---
Pt has new orders for comfort care due to new diagnosis of colon cancer. All 3 daughters are in agreement, pt will return home with daughter Barbara and hospice. No preference on agency.
[2025-08-15] MEDS ORDERED: Morphine Sulfate 20 MG/1ML 1 ML Oral Syringe SL PRN (17:40)
--- NOTE | 2025-08-15 18:08 | NUR ---
PT NOW COMFORT CARE. TREATED PAIN PER EMAR. PT IS ALERT AND ORIENTED X2-3. BEDREST. DOES NOT CALL APPROPRIATELY. COOPERATIVE WITH CARES. Q 2HOUR TURNS.
--- NOTE | 2025-08-16 05:53 | NUR ---
SHIFT SUMMARY COMFORT CARE CONTINUES. PT MEDICATED WITH ATIVAN PER EMAR AND SLEPT LONG INTERVALS. PT TURNED AND REPOSITIONED DURING THE NIGHT. PT SAYS "OW" WHENEVER SHE IS TOUCHED, BUT DENIES PAIN. TIPTON DRAINING YELLOW URINE. PT ATE A COUPLE OF BITES OF PUDDING AND DRANK A COUPLE OF SIPS OF JUICE. NO BM TONIGHT.
--- NOTE | 2025-08-16 14:21 | NUR ---
"Spiritual care | Comfort Care | Nurse Request Pt. is somnolent and does not respond to the occassions I attempt to rouse her. Though she was non-responsive Pt. display evidence of being at Peace. Prayed a blessing over her. Nurse verbalized gratitude for the spiritual care visit."
--- NOTE | 2025-08-16 17:00 | NUR ---
SHIFT SUMMARY: A&O TO SELF THROUGHOUT SHIFT. PT DECLINED PO MEDS. OFTEN VERBALIZES "OUCH", BUT DECLINES PAIN MEDS. MEDICATED PER PT REQUEST AND FLACC. REPOSITIONING PRN. DAUGHTER IN ROOM WITH PT. NO ACUTE EVENTS THIS SHIFT. LYING IN BED. BED LOCKED AND IN THE LOWEST POSITION. CALL LT WITHIN REACH.
--- NOTE | 2025-08-17 05:00 | NUR ---
SHIFT SUMMARY; PATIENT WAS AWAKE A LOT OF THIS SHIFT. WHAT SEEMS TO BE WORK WELL FOR HER IS 20MG ROXANOL STILL QUITE A BIT
--- NOTE | 2025-08-17 18:13 | NUR ---
SUMMARY- PT A/O TO SELF. OPENS EYES TO VERBAL AND TACT STIM. ANSWERS YES AND NO QUESTIONS, OCC NODS YES/NO. PT CALLS OUT "OUCH" WHEN EVER SHE IS TURNED, STIFFENS AND APPEARS IN PAIN. ROUTINE TURNS AND ASSIST WITH ADL'S. MEDICATED WITH ROXONOL X3 TODAY, HELPFUL PRE TURNS TO AID IN RELEIF. TIPTON PATENT, MED YELLOW CLEAR URINE. NO BM TODAY. DAUGHTER AND GRAND DAUGHTER HERE TO VISIT FOR ABOUT AN HOUR. PLAN FOR PT TO DC HOME ON HOSPICE ONCE HOSPITAL BED DELIVERED. WILL REPOET TO [facility]
--- NOTE | 2025-08-18 04:15 | NUR ---
Patient alert and oriented to self, yells out periodically throughout the literary writer, lungs dimished to base, skin reddened in groin perez area, denies pain yet calls out "ouch, Ouch" at times, medicated with roxanol per orders for comfort before turning, denies nausea, call light in reach, checked on frequently due to confusion, repositioned every 2-3 hours for comfort, bed in low and locked position, will continue to monitor closely due to confusion
--- NOTE | 2025-08-18 16:53 | NUR ---
ROUNDED ON PT, SLEEPING, APPEARS COMFORTABLE.
--- NOTE | 2025-08-18 18:25 | NUR ---
SUMMARY- PT A/O X1, COMFORT CARE. PT IS ALERT AND GIVES EYE CONTACT. ANSWERS YES AND NO. COOPERATIVE WITH CAER. PT APPEARS UNCOMFORTABLE WITH TURNS AND CALLS OUT "OWCH, OUCH...". MEDICATED WITH ROXONOL APPROX Q4 FOR PAIN. ADMINISTERED ATIVAN ONCE THIS AM FOR ANXIETY THAT SEEMED TO AID IN RELAXATION. BEDREST TODAY WITH ROUTINE TURNS. ATTENDS/TIPTON IN USE, PATENT AND DRAINING MED YELLOW. PT TOLERATING FOOD AND FLUIDS, MINCED AND MOIST IS A FEEDER. OCC COUGHING AFTER PO INTAKE, STRONG COUGH. RESP EVEN UNLABED, ROOM AIR. PLAN FOR PT TO DC ON HOSPICE TOMORROW. WILL REPORT TO NOC JANETH
--- NOTE | 2025-08-19 06:31 | NUR ---
SHIFT SUMMARY PATIENT ALERT TO SELF. PLEASANT WITH CARE. ANSWERS YES AND NO QUESTIONS. REPOSITIONING Q2H. TIPTON DRAINING TO GRAVITY. MEDICATED WITH ROXANOL AND ATIVAN PT YELLS OUT "OUCH, OUCH, OUCH." ADEQUATE PAIN CONTROL. PATIENT HAD 2 EVENTS OF EMESIS DURING SHIFT. MEDICATED PER EMAR. NO ACUTE CHANGES. CALL LIGHT IN REACH, BED IN LOWEST POSITION. WILL REPORT TO ONCOMING RN.
[2025-08-19] MEDS ORDERED: Nystatin 100,000 Unit/ML Susp 5 ML UDC PO SCH (14:00)
--- NOTE | 2025-08-19 18:14 | NUR ---
DISCHARGE PT DISCHARGED TO [facility] HOUSE ON HOSPICE VIA GURNEY TRANSPORT. DC PACKET AND BELONGINGS SENT WITH PT.
== END 2025-08-19 17:49 | disposition hospice, home (50) | DRG 871 ==
LOC: ER 22:42 → MEDS 08-07 05:37
PROVIDERS: Family Medicine; Internal Medicine Gastroenterology; Student in an Organized Health Care Education/Training Program; ADMIT Internal Medicine
PROC: 3E03329 Introduction of Other Anti-infective into Peripheral Vein, Percutaneous Approach (ICD-10-PCS; 2025-08-07)
PROC: 0T9B70Z Drainage of Bladder with Drainage Device, Via Natural or Artificial Opening (ICD-10-PCS; 2025-08-09)
PROC: 0DBK8ZX Excision of Ascending Colon, Via Natural or Artificial Opening Endoscopic, Diagnostic (ICD-10-PCS; principal; 2025-08-15 14:00)
PROC: 0DBL8ZZ Excision of Transverse Colon, Via Natural or Artificial Opening Endoscopic (ICD-10-PCS; 2025-08-15 14:00)
DX: A41.51 Sepsis due to Escherichia coli [E. coli] (principal); G92.8 Other toxic encephalopathy; I63.9 Cerebral infarction, unspecified; C18.2 Malignant neoplasm of ascending colon; I42.9 Cardiomyopathy, unspecified; I69.354 Hemiplegia and hemiparesis following cerebral infarction affecting left non-dominant side; Z51.5 Encounter for palliative care; Z66 Do not resuscitate; N30.00 Acute cystitis without hematuria; I48.21 Permanent atrial fibrillation; F03.93 Unspecified dementia, unspecified severity, with mood disturbance; R62.7 Adult failure to thrive; I10 Essential (primary) hypertension; E78.5 Hyperlipidemia, unspecified; E11.40 Type 2 diabetes mellitus with diabetic neuropathy, unspecified; D50.9 Iron deficiency anemia, unspecified; K56.41 Fecal impaction; K62.89 Other specified diseases of anus and rectum; A41.59 Other Gram-negative sepsis; G47.33 Obstructive sleep apnea (adult) (pediatric); E89.0 Postprocedural hypothyroidism; E66.9 Obesity, unspecified; G47.00 Insomnia, unspecified; F17.210 Nicotine dependence, cigarettes, uncomplicated; K63.5 Polyp of colon; K57.30 Diverticulosis of large intestine without perforation or abscess without bleeding; R33.9 Retention of urine, unspecified; R47.81 Slurred speech; E87.6 Hypokalemia; I95.9 Hypotension, unspecified; Z85.850 Personal history of malignant neoplasm of thyroid; Z88.1 Allergy status to other antibiotic agents; Z79.01 Long term (current) use of anticoagulants; Z79.890 Hormone replacement therapy; Z95.0 Presence of cardiac pacemaker; Z68.29 Body mass index [BMI] 29.0-29.9, adult; Z79.891 Long term (current) use of opiate analgesic; Z79.82 Long term (current) use of aspirin
CPT/HCPCS: 36415; 70450; 74177; 80048; 80053; 81001; 82272; 82607; 82728; 82746; 83540; 83550; 83605; 83735; 83880; 84439; 84443; 85025; 87077; 87086; 87186; 87637; 88305; 92610; 97110; 97162; 97166; 97530; 97535; 99285-25; A9270; J0696; J1650; J2405; J2543; J2704; J7030; J7050; J7120; Q9967